=== PATIENT | female | born 1945 | race Caucasian/White ===

== ENCOUNTER 2023-10-28 05:45 | Day surgery (SDC) | payer OTHER ==
[~2023-10-28] VITALS: Ht 160 cm; Wt 72.6 kg
[~2023-10-28 05:45] MED LIST: ACETAMINOPHEN 500 MG TABLET ONE; CELECOXIB 100 MG CAPSULE ONE; GABAPENTIN 300 MG CAPSULE ONE; SCOPOLAMINE HYDROBROMIDE 1 MG PATCH .72 H (TRANSDERM-SCOP) TD ONE; oxyCODONE HCL 10 MG TAB.ER.12H PO ONE
[2023-10-28] MEDS: GABAPENTIN 300 MG CAPSULE PO ONE (05:58)
[2023-10-28] MEDS: CELECOXIB 100 MG CAPSULE PO ONE (05:58)
[2023-10-28] MEDS: ACETAMINOPHEN 500 MG TABLET PO ONE (05:58)
[2023-10-28] MEDS: SCOPOLAMINE HYDROBROMIDE 1 MG PATCH .72 H (TRANSDERM-SCOP) TD ONE (05:58)
[2023-10-28] MEDS ORDERED: CEFAZOLIN SOD 2 GM in D5W 50 ML IV ONE (06:00)
[2023-10-28 06:34] VITALS: RESP 18; TEMP 97.8
[2023-10-28] MEDS ORDERED: ePHEDrine sulfate 50 MG/ML VIAL ONE (07:25)
[2023-10-28] MEDS: oxyCODONE HCL 10 MG TAB.ER.12H PO ONE (07:28)
[2023-10-28] MEDS ORDERED: LACTULOSE 20 GM/30 ML UDC PO PRN (07:30)
[2023-10-28] MEDS ORDERED: NALOXONE HCL 0.4 MG/ML AMP (NARCAN) IVP PRN ×2 (07:30)
[2023-10-28] MEDS ORDERED: METOCLOPRAMIDE HCL 10 MG/2 ML VIAL IVP PRN (07:30)
[2023-10-28] MEDS ORDERED: NALOXONE HCL 2 MG/2 ML SYR IVP PRN (07:30)
[2023-10-28] MEDS ORDERED: BISACODYL 10 MG/SUPPOSITORY RC PRN (07:30)
[2023-10-28] MEDS ORDERED: DIPHENHYDRAMINE HCL 25 MG CAPSULE PO PRN (07:30)
[2023-10-28] MEDS ORDERED: ONDANSETRON HCL 4 MG/2 ML VIAL IVP PRN ×2 (08:45→11:45)
[2023-10-28] MEDS ORDERED: HYDROmorphone 1 MG/ML INJ. CARTRIDGE IVP PRN ×5 (08:45→11:00)
[2023-10-28] MEDS ORDERED: MEPERIDINE HCL/PF 25 MG/ML DISP.SYRIN IVP PRN (08:45)
[2023-10-28] MEDS ORDERED: LR 1,000 ML IV SCH (08:45)
[2023-10-28] MEDS ORDERED: oxyCODONE HCL 5 MG TABLET PO PRN ×2 (11:00)
[2023-10-28] MEDS ORDERED: traMADol HCL HCL 50 MG TABLET (ULTRAM) PO PRN (11:00)
[2023-10-28] MEDS ORDERED: LORATADINE 10 MG TABLET PO PRN (11:00)
[2023-10-28 11:47] VITALS: BP_SYST 119; PULSE 70; O2SAT 95
[2023-10-28] MEDS ORDERED: TAMSULOSIN HCL 0.4 MG CAP PO ONE ×2 (12:00)
[2023-10-28] MEDS ORDERED: KETOROLAC TROMETHAMINE 10 MG TABLET (TORADOL) PO SCH ×2 (14:00→16:15)
[2023-10-28] MEDS ORDERED: ACETAMINOPHEN 500 MG TABLET PO SCH (14:00)
[2023-10-28] MEDS ORDERED: SENNOSIDES/DOCUSATE SODIUM 1 TAB TABLET(SENOKOT-S) PO SCH (21:00)
[2023-10-29] MEDS ORDERED: ASPIRIN 81 MG TAB.CHEW PO SCH (09:00)
[2023-10-29] MEDS ORDERED: CELECOXIB 200 MG CAPSULE PO SCH (11:00)
== END 2023-10-28 13:45 | disposition home or self-care (01) ==
LOC: SDS 05:45 → EDSTATUS 07:30 → SDS 13:45
PROVIDERS: ATTEND Student in an Organized Health Care Education/Training Program
DX: M17.12 Unilateral primary osteoarthritis, left knee (principal); I10 Essential (primary) hypertension; K21.9 Gastro-esophageal reflux disease without esophagitis; Z90.710 Acquired absence of both cervix and uterus; Z96.651 Presence of right artificial knee joint; Z98.890 Other specified postprocedural states; Z79.899 Other long term (current) drug therapy; Z87.891 Personal history of nicotine dependence; Z82.3 Family history of stroke
CPT/HCPCS: 87081; 27447; 97162; 64447; 73560; 97110; 97530; 97116; 88305; 88311; J3490 ×3; J0690; J0696; J3465; J3010; J7060 ×2; J7120; C1776 ×4; C1713